=== PATIENT | male | born 1990 | race Two or more races ===

== ENCOUNTER 2018-08-18 17:37 | Emergency (ER) | payer SELFPAY ==
[~2018-08-18] VITALS: Ht 177.8 cm; Wt 77.1 kg
[2018-08-18 17:37] VITALS: BP 151/106
== END 2018-08-18 19:39 | disposition home or self-care (01) ==
LOC: ER 17:37
DX: S13.4XXA Sprain of ligaments of cervical spine, initial encounter (principal); S33.5XXA Sprain of ligaments of lumbar spine, initial encounter; Z60.2 Problems related to living alone; V49.49XA Driver injured in collision with other motor vehicles in traffic accident, initial encounter; Y93.89 Activity, other specified; Y92.413 State road as the place of occurrence of the external cause; Y99.8 Other external cause status
CPT/HCPCS: 72125-TC; 72131-TC